=== PATIENT | male | born 1965 | race Asian ===

== ENCOUNTER 2018-08-14 11:19 | Emergency (ER) | payer OTHER ==
[~2018-08-14] VITALS: Ht 165.1 cm; Wt 49.9 kg
[2018-08-14 11:25] VITALS: Ht 165.1 cm; Wt 49.9 kg
[2018-08-14 11:44] LABS: BASOPHIL % 0.8 % (0-2); PLATELET COUNT 353 x10^3mcL (130-400)
[2018-08-14 11:51] LABS: CALCIUM 9.1 mg/dL (8.5-10.1); CARBON DIOXIDE 28.4 mmol/L (21-32); CHLORIDE SERUM 103 mmol/L (98-107); CREATININE SERUM 0.8 mg/dL (0.7-1.3); GFR1 > 60 mL/min; GLUCOSE SERUM 107 mg/dL (74-106); POTASSIUM SERUM 3.8 mmol/L (3.5-5.1); SODIUM SERUM 140 mmol/L (136-145)
[2018-08-14 11:56] LABS: ALBUMIN 3.9 g/dL (3.4-5.0); ALKALINE PHOSPHATASE 81 U/L (46-116); ALT/SGPT 19 U/L (16-63); AST/SGOT 14 U/L (15-37); BILIRUBIN TOTAL 0.3 mg/dL (0.20-1.00); TOTAL PROTEIN, SERUM 7.7 g/dL (6.4-8.2)
[2018-08-14 12:33] LABS: AMPHETAMINE QUAL UR NONE DETECTED (See below)
[2018-08-14 14:59] VITALS: BP 106/72
== END 2018-08-14 14:43 | disposition home or self-care (01) ==
LOC: ED 11:19 → EDBD 11:19 → ED 14:43
PROVIDERS: Emergency Medicine
DX: R41.82 Altered mental status, unspecified (principal)
CPT/HCPCS: G0480; J7030